=== PATIENT | female | born 1985 | race Caucasian/White ===

== ENCOUNTER 2020-08-15 11:19 | Day surgery (SDC) | payer BC ==
[2020-08-15 11:56] VITALS: BMI 35.9
[2020-08-15] MEDS ORDERED: hydrALAZINE 20 MG/ML VIAL SLOW IVP PRN (12:00)
[2020-08-15 14:57] LABS: Hemoglobin A1c 5.5 % (4.0-6.0)
== END 2020-08-15 13:30 | disposition home or self-care (01) ==
LOC: CSHLD/OP 11:19
PROVIDERS: ATTEND Family Medicine
DX: O36.8130 Decreased fetal movements, third trimester, not applicable or unspecified (principal); O24.410 Gestational diabetes mellitus in pregnancy, diet controlled; Z3A.36 36 weeks gestation of pregnancy
CPT/HCPCS: 76819; 83036; 99282

== ENCOUNTER 2020-08-29 10:56 | Outpatient (CLI) | payer BC ==
[2020-08-29 19:17] LABS: SARS-CoV-2 PCR by NAA Not Detected (NotDetected)
== END 2020-08-29 10:57 | disposition home or self-care (01) ==
LOC: CSHLAB 10:56
PROVIDERS: ATTEND Family Medicine
DX: Z20.822 Contact with and (suspected) exposure to COVID-19 (principal)
CPT/HCPCS: 87635; U0003; U0005

== ENCOUNTER 2020-09-03 18:00 | Inpatient (IN) | payer BC ==
[2020-09-03 19:44] VITALS: BMI 36.2
[2020-09-03] MEDS ORDERED: Acetaminophen 500 MG TAB PO PRN (20:01)
[2020-09-03] MEDS ORDERED: Lidocaine 1% (PF) 30 ML VIAL SC PRN (20:01)
[2020-09-03] MEDS ORDERED: Ibuprofen 800 MG TAB PO PRN (20:01)
[2020-09-03] MEDS ORDERED: Carboprost 250 MCG/ML AMP IM PRN (20:01)
[2020-09-03] MEDS ORDERED: hydrALAZINE 20 MG/ML VIAL SLOW IVP PRN (20:01)
[2020-09-03] MEDS ORDERED: Diphenoxylate HCl/Atropine Tablet PO PRN (20:01)
[2020-09-03] MEDS ORDERED: Ondansetron PF 4 MG/2 ML Vial IVP PRN (20:01)
[2020-09-03] MEDS ORDERED: HYDROcodone/Acetaminophen 5/325 mg Tablet PO PRN (20:01)
[2020-09-03] MEDS ORDERED: NS / Oxytocin 40 units/1000ml 1,000 ML IV PRN (20:01)
[2020-09-03] MEDS ORDERED: Promethazine HCl 25 MG/ML VIAL IM PRN (20:01)
[2020-09-03] MEDS ORDERED: Methylergonovine 0.2 MG/ML VIAL IM PRN (20:01)
[2020-09-03] MEDS ORDERED: Misoprostol 200 MCG TAB PR PRN (20:01)
[2020-09-03 20:53] LABS: Mean Corpuscular HGB CONC 33.6 g/dL (32.0-36.0); Mean Corpuscular Hemoglobin 30.6 pg (27.0-33.0); Mean Corpuscular Volume 91.1 fl (81.6-98.3); Mean Platelet Volume 10.4 fl (7.4-10.4); Platelet Count 346 10x3/uL (150-450); RBC Distribution Width 13.8 % (11.5-14.5); Red Blood Cell (RBC) Count 3.92 10x6/uL (3.90-5.03); White Blood Cell (WBC) Count 14.8 10x3/uL (3.5-10.5)
[2020-09-03 21:50] LABS: Syphilis Antibody Nonreactive (Nonreactive); Syphilis Antibody Index 0.04 S/CO (<1.00 Non-Reactive)
[2020-09-03 21:50] LABS: Hep B Surf Ag Non-Reactive S/CO (NonReactive)
[2020-09-03 21:53] LABS: HBSAg Index 0.16 S/CO (0-0.99)
[2020-09-03] MEDS ORDERED: Misoprostol 100 MCG TAB PO SCH (22:00)
[2020-09-04] MEDS ORDERED: Calcium Carbonate 500 MG ChewTAB ONE (02:59)
[2020-09-04] MEDS ORDERED: Calcium Carbonate 500 MG ChewTAB PO PRN (02:59)
[2020-09-04] MEDS: Lactated Ringer's 1,000 ML IV SCH ×2 (03:18→13:24)
[2020-09-04] MEDS ORDERED: NS w/ Oxytocin 30 units 500 ML ONE ×2 (06:23→14:12)
[2020-09-04] MEDS ORDERED: Fentanyl 4 mcg/Bup 0.1% Cadd 100 ML ONE (12:54)
[2020-09-04] MEDS ORDERED: Naloxone HCl 0.4 mg/ml Vial IVP PRN ×2 (13:23)
[2020-09-04] MEDS ORDERED: Ondansetron PF 4 MG/2 ML Vial IVP PRN ×2 (13:23→16:46)
[2020-09-04] MEDS ORDERED: diphenhydrAMINE 50 MG/ML VIAL IVP PRN (13:23)
[2020-09-04] MEDS ORDERED: Promethazine HCl 25 MG/ML VIAL IM PRN ×2 (13:23→16:46)
[2020-09-04] MEDS ORDERED: Eucerin (Mineral Oil/Petrolatum,White) 30 gm Jar TOP PRN (13:23)
[2020-09-04] MEDS ORDERED: Lactated Ringer's 500 ML IV PRN (13:23)
[2020-09-04] MEDS ORDERED: ePHEDrine 50 MG/ML VIAL SLOW IVP PRN (13:23)
[2020-09-04] MEDS ORDERED: Acetaminophen 325 MG TAB PO PRN (13:23)
[2020-09-04] MEDS ORDERED: Fentanyl 4 mcg/Bupivacaine 0.1% Cassette 100 ML EPIDURAL SCH (13:30)
[2020-09-04] MEDS ORDERED: Communication Order-Pharmacy FS SCH (13:30)
[2020-09-04] MEDS ORDERED: Preparation H Ointment 28 GM TUBE PR PRN (16:46)
[2020-09-04] MEDS ORDERED: Adacel (T-DAP) 0.5 ML SYRINGE IM ONE (16:46)
[2020-09-04] MEDS ORDERED: diphenhydrAMINE 25 MG CAP PO PRN (16:46)
[2020-09-04] MEDS ORDERED: Milk Of Magnesia 30 ML UDCUP PO PRN (16:46)
[2020-09-04] MEDS ORDERED: Bisacodyl 10 MG SUPP PR PRN (16:46)
[2020-09-04] MEDS ORDERED: HYDROcodone/Acetaminophen 5/325 mg Tablet PO PRN ×2 (16:46)
[2020-09-04] MEDS ORDERED: hydrALAZINE 20 MG/ML VIAL SLOW IVP PRN (16:46)
[2020-09-04] MEDS ORDERED: NS w/ Oxytocin 30 units 500 ML IV SCH (17:45)
[2020-09-04] MEDS ORDERED: Bupivacaine 0.25% HCL 30 ML VIAL ONE (19:33)
[2020-09-04] MEDS: Ibuprofen 800 MG TAB PO SCH (21:57)
[2020-09-04] MEDS: Docusate Calcium (SURFAK) 240 MG CAP PO SCH (21:57)
[2020-09-05] MEDS: Ibuprofen 800 MG TAB PO SCH ×3 (05:44→14:14)
[2020-09-05] MEDS: Ferrous Sulfate 325 MG TAB PO SCH ×2 (07:57→08:26)
[2020-09-05] MEDS: Docusate Calcium (SURFAK) 240 MG CAP PO SCH (08:53)
[2020-09-05] MEDS ORDERED: Prenatal Vitamin 1 TAB PO SCH (09:00)
[2020-09-05 11:49] VITALS: BP 92/52; TEMP 97.8
== END 2020-09-05 15:58 | disposition home or self-care (01) | DRG 807 ==
LOC: CSHLD 18:47 → CSHPP 09-04 17:35
PROVIDERS: ADMIT Family Medicine; ATTEND Family Medicine
PROC: 10E0XZZ Delivery of Products of Conception, External Approach (ICD-10-PCS; principal; 2020-09-04)
DX: O24.429 Gestational diabetes mellitus in childbirth, unspecified control (principal); Z37.0 Single live birth; Z3A.39 39 weeks gestation of pregnancy; Z20.822 Contact with and (suspected) exposure to COVID-19
CPT/HCPCS: 36415; 36416; 85027; 86780; 86850; 86900; 86901; 87340; J2405; J7030; S0020